=== PATIENT | female | born 1990 | race Caucasian/White ===

== ENCOUNTER 2017-02-13 17:54 | Emergency (ER) | payer MEDICAID ==
[~2017-02-13 17:54] MED LIST: COLACE100 MG PO; CYCLOBENZAPRINE10 M1 PO; DULCOLAX10 MG/SUPP RC; IBUPROFEN800 MG PO; LEXAPRO20 MG PO; LEXAPRO5 MG PO; MAG-AL PLUS SUS30 ML PO; MILK OF MA400 MG/5 M PO; NOMEDS; OXYCODONE/APAP PO; PRENATAL1 EACH PO; SENOKOT-S TABLE1 TAB PO; TRAZODONE50 MG PO; VALTREX500 MG PO; VISTARIL50 MG PO; ZOLOFT50 MG PO; ZYRTEC10 M3 PO
== END 2017-02-13 20:51 | disposition left against medical advice (07) ==
LOC: EDMED 17:54
DX: M25.561 Pain in right knee (principal); Z53.21 Procedure and treatment not carried out due to patient leaving prior to being seen by health care provider

== ENCOUNTER 2017-04-07 20:25 | Emergency (ER) | payer MEDICAID ==
[2017-04-07] MEDS ORDERED: NO HOME MEDICATION XX (21:17)
[2017-04-07] MEDS ORDERED: NORCO 5-325 TA1 EACH PO (23:25)
== END 2017-04-07 23:42 ==
LOC: EDMED 20:25
PROC: 2W3LXYZ Immobilization of Right Lower Extremity using Other Device (ICD-10-PCS; principal; 2017-04-07)
DX: S83.91XA Sprain of unspecified site of right knee, initial encounter (principal); F32.9 Major depressive disorder, single episode, unspecified; F41.9 Anxiety disorder, unspecified; Z88.1 Allergy status to other antibiotic agents; Z88.2 Allergy status to sulfonamides; X50.1XXA Overexertion from prolonged static or awkward postures, initial encounter; Y93.89 Activity, other specified; Y92.013 Bedroom of single-family (private) house as the place of occurrence of the external cause; Y99.8 Other external cause status
CPT/HCPCS: J1885; J2270